=== PATIENT | male | born 1960 | race Caucasian/White ===

== ENCOUNTER 2016-05-03 23:22 | Emergency (ER) | payer SELFPAY ==
[~2016-05-03 23:22] MED LIST: LISINOPRIL PO; NORCO 5/325 TAB1 TAB PO
[2016-05-03 23:55] LABS: BASO % 0.2 % (0-2); EOS % 0.2 % (0-7); HCT-HEMATOCRIT 40.1 % (36.0-53.5); IMMATURE GRANULOCYTES ABSOLUTE 0.01 tho/cmm (0-0.03); IMMATURE GRANULOCYTES PERCENT 0.1 % (0-0.3); MCH (MEAN CORPUSCULAR HGB) 31.7 pg (28.0-32.0); MCHC MEAN CORPUSCULAR HGB CONC 34.9 % (32.0-36.0); MCV (MEAN CELL VOLUME) 90.9 fl (82.0-96.0); MEAN PLATELET VOLUME 9.7 cmc (9.4-12.4); MONO % 5.3 % (0-12); MONOCYTE ABSOLUTE COUNT 0.5 tho/cmm (0.0-1.2); NEUTROPHIL ABSOLUTE COUNT 7.9 tho/cmm (1.6-8.0); NEUTROPHIL-AUTOMATED 7.9 tho/cmm (1.6-8.0); NEUTROPHILS % 83.2 % (40-80); PLATELET COUNT 233 tho/cmm (150-450); RED BLOOD COUNT 4.41 mil/cmm (4.40-5.70); RED CELL DISTRIBUTION WIDTH 12.9 % (12.4-16.4); WHITE BLOOD COUNT 9.4 tho/cmm (4.0-10.0)
[2016-05-04] MEDS ORDERED: PENICILLIN V P500 M1 PO (01:42)
== END 2016-05-04 02:31 ==
LOC: EDMED 23:22
PROVIDERS: Emergency Medicine
DX: S09.90XA Unspecified injury of head, initial encounter (principal); S42.022A Displaced fracture of shaft of left clavicle, initial encounter for closed fracture; S02.5XXA Fracture of tooth (traumatic), initial encounter for closed fracture; S00.03XA Contusion of scalp, initial encounter; F15.10 Other stimulant abuse, uncomplicated; F17.200 Nicotine dependence, unspecified, uncomplicated; Z23 Encounter for immunization; V17.4XXA Pedal cycle driver injured in collision with fixed or stationary object in traffic accident, initial encounter; Y93.55 Activity, bike riding; Y92.410 Unspecified street and highway as the place of occurrence of the external cause; Y99.8 Other external cause status
CPT/HCPCS: G0480